=== PATIENT | female | born 1965 | race Caucasian/White ===

== ENCOUNTER 2021-01-02 08:56 | Day surgery (SDC) | payer MEDICARE ==
[2021-01-02] VITALS (9 sets, daily range): BP systolic 110–148; BP diastolic 65–88
[~2021-01-02] VITALS: Ht 165.1 cm; Wt 106.8 kg
[2021-01-02] MEDS ORDERED: MIDAZolam 1 MG/ML 5ML VIAL ONE (09:03)
[2021-01-02] MEDS ORDERED: fentaNYL/PF 50MCG/1 ML 2ML syringe ONE (09:03)
[2021-01-02] MEDS ORDERED: SERT100T PO (09:22)
[2021-01-02] MEDS ORDERED: BUS15T PO ×2 (09:23→09:24)
[2021-01-02] MEDS ORDERED: TRAM50TA2 PO (09:24)
[2021-01-02] MEDS ORDERED: SIMV-45 PO (09:25)
[2021-01-02] MEDS ORDERED: LOSA100T57 PO (09:27)
[2021-01-02] MEDS ORDERED: LEVO100T78 PO (09:34)
[2021-01-02] MEDS ORDERED: BUSP10TA3 PO (09:34)
[2021-01-02] MEDS ORDERED: METH20TA40 PO (09:34)
[2021-01-02] MEDS ORDERED: HYDR-3927 PO (09:34)
[2021-01-02] MEDS ORDERED: LAMO25TA5 PO (09:34)
[2021-01-02] MEDS ORDERED: TRIA1CAP6 PO (09:34)
[2021-01-02] MEDS ORDERED: DULO-31 PO (09:35)
== END 2021-01-02 11:37 | disposition home or self-care (01) ==
LOC: GI LAB 08:56
PROVIDERS: ATTEND Internal Medicine Gastroenterology
DX: Z12.11 Encounter for screening for malignant neoplasm of colon (principal); E66.9 Obesity, unspecified; Z68.39 Body mass index [BMI] 39.0-39.9, adult; Z88.1 Allergy status to other antibiotic agents; Z79.899 Other long term (current) drug therapy
CPT/HCPCS: G0121; G0500; J2250; J3010; J7040; Z7512; 45378; 99152; 99153; A4620

== ENCOUNTER 2021-04-03 09:23 | Day surgery (SDC) | payer MEDICARE ==
[2021-04-03] VITALS (9 sets, daily range): BP systolic 124–147; BP diastolic 71–83
[~2021-04-03] VITALS: Ht 165.1 cm; Wt 106.8 kg
[~2021-04-03 09:23] MED LIST: BUSP10TA3 PO; DULO-31 PO; HYDR-3927 PO; LAMO25TA5 PO; LEVO100T78 PO; LOSA100T57 PO; METH20TA40 PO; SERT100T PO; SIMV-45 PO; TRAM50TA2 PO; TRIA1CAP6 PO
[2021-04-03] MEDS ORDERED: ARIP15TA3 PO (09:59)
[2021-04-03] MEDS ORDERED: LAMO25TA72 PO (09:59)
[2021-04-03] MEDS ORDERED: LAMO200T31 PO (09:59)
[2021-04-03] MEDS ORDERED: CHOL400T57 PO (09:59)
[2021-04-03] MEDS ORDERED: TRAM50TA2 PO (09:59)
[2021-04-03] MEDS ORDERED: IBUP-1984 PO (09:59)
[2021-04-03] MEDS ORDERED: [UNRECOGNIZED DRUG - CODE] PO (09:59)
[2021-04-03] MEDS ORDERED: VITA0.4T18 PO (09:59)
[2021-04-03] MEDS ORDERED: MULT-467 PO (09:59)
[2021-04-03] MEDS ORDERED: CYCL-394 PO (09:59)
[2021-04-03] MEDS ORDERED: MIDAZolam 1 MG/ML 5ML VIAL ONE (10:02)
[2021-04-03] MEDS ORDERED: fentaNYL/PF 50MCG/1 ML 2ML syringe ONE (10:02)
== END 2021-04-03 12:05 | disposition home or self-care (01) ==
LOC: GI LAB 09:23
PROVIDERS: ATTEND Internal Medicine Gastroenterology
DX: Z12.11 Encounter for screening for malignant neoplasm of colon (principal); D12.3 Benign neoplasm of transverse colon; D12.5 Benign neoplasm of sigmoid colon; D12.2 Benign neoplasm of ascending colon; C18.7 Malignant neoplasm of sigmoid colon; I10 Essential (primary) hypertension; K57.30 Diverticulosis of large intestine without perforation or abscess without bleeding; K64.8 Other hemorrhoids; Z88.1 Allergy status to other antibiotic agents; Z79.899 Other long term (current) drug therapy
CPT/HCPCS: 45380; 45381; 45385; 99153; C1773; G0500; J2250; J3010; J7040; Z7512; 45335; 88305; 99152; A4620

== ENCOUNTER 2023-02-13 13:46 | Emergency (ER) | payer MEDICARE, OTHER ==
[~2023-02-13] VITALS: Ht 165.1 cm; Wt 129.0 kg
[~2023-02-13 13:46] MED LIST changes: +ARIP15TA3 PO; -BUSP10TA3 PO; +CHOL400T57 PO; +CYCL-394 PO; -DULO-31 PO; +IBUP-1984 PO; +LAMO100T PO; +LAMO200T10 PO; -LAMO25TA5 PO; -LOSA100T57 PO; +LOSA100T58 PO; +MULT-467 PO; -TRIA1CAP6 PO; +TRIA1CAP88 PO; +VITA0.4T18 PO
[2023-02-13] MEDS ORDERED: HYDROcodone/acetaminophen 10/325mg tab PO ONE ×2 (16:55→17:00)
[2023-02-13] MEDS ORDERED: HYDR-3973 PO (17:06)
--- NOTE | 2023-02-13 17:07 | NUR ---
Sling applied to right arm
[2023-02-13 17:36] VITALS: BP 134/78; PULSE 84; RESP 18; TEMP 98.1; O2SAT 98
== END 2023-02-13 17:39 | disposition home or self-care (01) ==
LOC: ER 13:46
DX: M25.511 Pain in right shoulder (principal); W19.XXXA Unspecified fall, initial encounter; Y93.89 Activity, other specified; Y92.89 Other specified places as the place of occurrence of the external cause; Y99.8 Other external cause status
CPT/HCPCS: 73030; 99283

== ENCOUNTER 2023-03-05 08:21 | Observation (INO) | payer OTHER ==
[2023-02-28 15:39] LABS: BASOPHILS # (AUTO) 0.1 X10'3 (0-0.2); BASOPHILS % (AUTO) 0.6 % (0-1); EOSINOPHILS # (AUTO) 0.4 X10'3 (0-0.9); EOSINOPHILS % (AUTO) 3.7 % (0-6); LYMPHOCYTES # (AUTO) 3.1 X10'3 (1.1-4.8); LYMPHOCYTES % (AUTO) 27.8 % (21-51); MEAN CORPUSCULAR HEMOGLOBIN 29.4 PG (27.0-31.0); MEAN CORPUSCULAR HGB CONC 33.3 g/dL (33.0-36.5); MEAN CORPUSCULAR VOLUME 88.4 FL (78-98); MEAN PLATELET VOLUME 6.4 FL (7.4-10.4); MONOCYTES # (AUTO) 0.8 X10'3 (0-0.9); NEUTROPHILS # (AUTO) 6.7 X10'3 (1.8-7.7); NEUTROPHILS % (AUTO) 60.9 % (42-75); PRE OP HEMATOCRIT 43.1 % (35.0-45.0); PRE OP HEMOGLOBIN 14.3 g/dL (12.0-16.0); PRE OP PLATELET COUNT 438 X10'3 (140-440); RED BLOOD COUNT 4.87 X10'6 (4.20-5.60); RED CELL DISTRIBUTION WIDTH 14.3 % (11.5-14.5)
[2023-02-28 15:43] LABS: BILIRUBIN,URINE NEGATIVE (Neg); CLARITY,URINE SLIGHTLY CLOUDY (Clear); COLOR,URINE YELLOW (Yellow); GLUCOSE, URINE NEGATIVE (Neg); KETONES,URINE NEGATIVE (Neg); LEUKOCYTE ESTERASE ,URINE NEGATIVE (Neg); NITRITES, URINE NEGATIVE (Neg); OCCULT BLOOD,URINE NEGATIVE (Neg); PROTEIN,URINE NEGATIVE (Neg); UROBILINOGEN,URINE 0.2 E.U/dL (0.2-1.0)
[2023-02-28 15:48] LABS: UA COLLECTION TYPE CLN CATCH MIDSTREAM
[2023-02-28 15:49] LABS: BACTERIA,URINE FEW /HPF (Neg); RBC,URINE 0-2 /HPF (0-2); SQUAMOUS EPITHELIAL CELL,UR FEW /LPF (FEW); STARCH,URINE MODERATE /HPF (NEGATIVE)
[2023-02-28 15:50] LABS: WBC,URINE 0-4 /HPF (0-4)
[2023-02-28 15:54] LABS: ALBUMIN 3.8 G/DL (3.4-5.0); ALKALINE PHOSPHATASE 154 IU/L (46-116); BLOOD UREA NITROGEN 13 MG/DL (7-18); BUN/CREATININE RATIO 13.3 (10.0-20.0); CHLORIDE 106 MMOL/L (99-107); CREATININE 0.98 MG/DL (0.40-0.90); PRE OP ALT 43 U/L (30-65); PRE OP ANION GAP 8 (8-16); PRE OP AST 29 U/L (10-37); PRE OP BILIRUB, TOTAL 0.2 MG/DL (0.0-1.0); PRE OP GLUCOSE 124 MG/DL (70-104); PRE OP POTASSIUM 3.7 MMOL/L (3.4-5.1); PRE OP SODIUM 142 MMOL/L (135-145); TOTAL CARBON DIOXIDE 27.7 MMOL/L (24-32); TOTAL PROTEIN 7.7 G/DL (6.4-8.2); eGFR 58 ML/MIN
[2023-02-28 15:55] LABS: PRE OP INR 0.9 INR
[~2023-03-05] VITALS: Ht 165.1 cm; Wt 113.4 kg
[2023-03-05] VITALS (18 sets, daily range): BP systolic 109–136; BP diastolic 63–80; PULSE 67–90; RESP 13–19; TEMP 97.3–99.2; O2SAT 91–99
[~2023-03-05 08:21] MED LIST changes: +BUSP10TA3 PO; -CHOL400T57 PO; -CYCL-394 PO; -HYDR-3927 PO; -IBUP-1984 PO; -LAMO200T10 PO; -VITA0.4T18 PO; +cefazolin 2gm/D5W 100mL 100 ML IV ONE; +famotidine 20mg tablet PO ONE; +ringers solution, lacted 1,000 ML IV SCH; +tranexamic acid inj. 1,000 MG in normal saline IV soln 100ML IV ONE
[2023-03-05] MEDS ORDERED: vancomycin 1,000mg inj ONE (10:54)
[2023-03-05] MEDS ORDERED: dexamethasone sod phosphate 10mg/ml inj ONE (12:23)
[2023-03-05] MEDS ORDERED: sevoflurane 250ml liquid IH ONE (12:23)
[2023-03-05] MEDS ORDERED: ondansetron/PF 4mg/2ml inj ONE (12:23)
[2023-03-05] MEDS ORDERED: fentaNYL/PF 50MCG/1 ML 2ML syringe ONE (12:29)
[2023-03-05] MEDS ORDERED: midazolam 1 mg/ML 2ml injection ONE (12:29)
[2023-03-05] MEDS ORDERED: propofol inj 20 ML IV ONE (12:32)
[2023-03-05] MEDS ORDERED: ROPIVAcaine 0.5% (5mg/ml) 30ml vial ONE (12:38)
[2023-03-05] MEDS ORDERED: proCHLORperazine 10 MG/2 ml inj IV PRN (14:15)
[2023-03-05] MEDS ORDERED: morphine 2 MG/ML inj. syringe IV PRN (14:15)
[2023-03-05] MEDS ORDERED: ringers solution, lacted 1,000 ML IV SCH (14:15)
[2023-03-05] MEDS ORDERED: morphine 4 MG/ML inj SYRINge IV PRN (14:15)
[2023-03-05] MEDS ORDERED: meperidine/PF 25mg/ml syringe IV PRN ×3 (14:15)
[2023-03-05] MEDS ORDERED: ondansetron/PF 4mg/2ml inj IV PRN ×2 (14:15→18:05)
--- NOTE | 2023-03-05 18:04 | NUR ---
Received from OR via hospital bed, accompanied by Anesthesiologist Marco and report given by Anesthesiolfélix and RACIEL Ornelas. Pt is responsive but sleepy. On 10L SM [id number]%. Right arm dressing with xerofoam, gauze, sling, and powdered cold pack-CDI. Right hand is warm, capillary refill <3 seconds, radial pulse palpable. Pt is sleepy, no s/sx of pain or discomfort.
[2023-03-05] MEDS ORDERED: potassium cl 20mEq in 1/2 NS 1,000 ML IV SCH (18:05)
[2023-03-05] MEDS ORDERED: diphenhydrAMINE 25mg capsule PO PRN (18:05)
[2023-03-05] MEDS ORDERED: HYDROcodone/acetaminophen 10/325mg tab PO PRN (18:05)
[2023-03-05] MEDS ORDERED: naloxone 0.4 mg/ml inj IV PRN (18:05)
[2023-03-05] MEDS ORDERED: magnesium hydroxide 30ml (MOM) UD suspension PO PRN (18:05)
[2023-03-05] MEDS ORDERED: bisacodyl 10mg suppository rectal RC PRN (18:05)
[2023-03-05] MEDS ORDERED: acetaminophen 325mg tablet PO PRN (18:05)
[2023-03-05] MEDS ORDERED: HYDROmorphone/PF 0.2 MG/ML SYRINGE IV PRN ×2 (18:15)
--- NOTE | 2023-03-05 19:08 | NUR ---
Report given to RACIEL Romeo. Pt transferred with all personal belongings including CPAP, all placed at the pt bedside. Bed locked, low, and call light in reach. No incident noted upon transfer.
[2023-03-05] MEDS: HYDROcodone/acetaminophen 10/325mg tab PO PRN (19:57)
[2023-03-05] MEDS: cefazolin 2gm/D5W 100mL 100 ML IV SCH (21:34)
[2023-03-06] MEDS: HYDROcodone/acetaminophen 10/325mg tab PO PRN ×3 (01:47→15:24)
[2023-03-06 02:00] VITALS: BP 128/86; PULSE 88; RESP 16; TEMP 98.7; O2SAT 94
[2023-03-06] MEDS: cefazolin 2gm/D5W 100mL 100 ML IV SCH (04:24)
[2023-03-06 06:00] VITALS: BP 112/72; PULSE 65; RESP 16; TEMP 98.4; O2SAT 98
--- NOTE | 2023-03-06 06:45 | NUR ---
Problems reprioritized. Patient report given, questions answered & plan of care reviewed with MARIKA SHIN.
--- NOTE | 2023-03-06 06:49 | NUR ---
Patient in room [facility] 4024. I have received report from Radha Garcia RN and had the opportunity to ask questions and assume patient care.
[2023-03-06 06:58] LABS: BASOPHILS % (AUTO) 0.3 % (0-1); EOSINOPHILS % (AUTO) 0 % (0-6); HEMATOCRIT 39.6 % (35.0-45.0); HEMOGLOBIN 12.8 g/dl (12.0-16.0); LYMPHOCYTES # (AUTO) 2.3 X10'3 (1.1-4.8); LYMPHOCYTES % (AUTO) 15.4 % (21-51); MEAN CORPUSCULAR HGB CONC 32.4 g/dL (33.0-36.5); MEAN CORPUSCULAR VOLUME 89.6 FL (78-98); MEAN PLATELET VOLUME 6.8 FL (7.4-10.4); MONOCYTES # (AUTO) 1.2 X10'3 (0-0.9); MONOCYTES % (AUTO) 8.4 % (2-12); NEUTROPHILS # (AUTO) 11.2 X10'3 (1.8-7.7); NEUTROPHILS % (AUTO) 75.9 % (42-75); PLATELET COUNT 471 X10'3 (140-440); RED BLOOD COUNT 4.42 X10'6 (4.20-5.60); RED CELL DISTRIBUTION WIDTH 14.8 % (11.5-14.5); WHITE BLOOD COUNT 14.8 X10'3 (4.5-11.0)
[2023-03-06 07:21] LABS: ANION GAP 8 (8-16); CHLORIDE 101 MMOL/L (99-107); POTASSIUM 3.7 MMOL/L (3.5-5.1); SODIUM 138 MMOL/L (135-145); TOTAL CARBON DIOXIDE 29.2 MMOL/L (24-32)
[2023-03-06 08:00] VITALS: RESP 16; O2SAT 98
[2023-03-06] MEDS ORDERED: aspirin 325mg tablet PO SCH (08:30)
[2023-03-06 10:00] VITALS: BP 135/64; PULSE 72; RESP 20; TEMP 98.4; O2SAT 94
[2023-03-06] MEDS ORDERED: ketorolac tromethamine 15mg/ml inj. IV STA (11:54)
--- NOTE | 2023-03-06 13:08 | NUR ---
I called pharmacy and spoke with Karina. She stated that the Grant just went through under worker comp approval. However, patient took tramadol prior to sx and isn't available for refill until after 03/18. So therefore, the new tramadol rx will NOT be filled. I advised Sarika
--- NOTE | 2023-03-06 15:30 | NUR ---
Patient discharged home with family and all discharge instructions were explained. All questions were answered and belongings were gathered. IV removed. Patient was alert and appropriate. Patient was wheeled downstairs and helped into private vehicle.
== END 2023-03-06 15:39 | disposition home or self-care (01) ==
LOC: PRE-OP 08:21 → INTOOBSV 18:10 → ORTHO 4S 18:10
PROVIDERS: ADMIT Specialist; ATTEND Specialist
DX: S42.231A 3-part fracture of surgical neck of right humerus, initial encounter for closed fracture (principal); S42.251A Displaced fracture of greater tuberosity of right humerus, initial encounter for closed fracture; M75.100 Unspecified rotator cuff tear or rupture of unspecified shoulder, not specified as traumatic; I10 Essential (primary) hypertension; E78.5 Hyperlipidemia, unspecified; M79.7 Fibromyalgia; G47.30 Sleep apnea, unspecified; F98.8 Other specified behavioral and emotional disorders with onset usually occurring in childhood and adolescence; M81.0 Age-related osteoporosis without current pathological fracture; K21.9 Gastro-esophageal reflux disease without esophagitis; E03.9 Hypothyroidism, unspecified; F41.8 Other specified anxiety disorders; M19.90 Unspecified osteoarthritis, unspecified site; Z79.899 Other long term (current) drug therapy; W18.30XA Fall on same level, unspecified, initial encounter; Y93.01 Activity, walking, marching and hiking; Y92.218 Other school as the place of occurrence of the external cause; Y99.0 Civilian activity done for income or pay
CPT/HCPCS: 23430; 23615; 36415; 71046; 73030; 73060; 76000; 80051; 80053; 81001; 82948; 85025; 85610; 85730; 86885; 86900; 86901; 87081; 93005; 96365; 96366; 96375; 97161; 97535; C1713; G0378; J0690; J1100; J1170; J1885; J2250; J2405; J2704; J2795; J3010; J3370; J3480; J3490; J7120; A4565; A4618; A4620; A6449; A6455; A7000

== ENCOUNTER 2023-12-24 11:00 | Observation (INO) | payer OTHER ==
[2023-12-18 10:56] LABS: BASOPHILS # (AUTO) 0.1 X10'3 (0-0.2); BASOPHILS % (AUTO) 0.6 % (0-1); LYMPHOCYTES # (AUTO) 2.9 X10'3 (1.1-4.8); LYMPHOCYTES % (AUTO) 33.5 % (21-51); MONOCYTES # (AUTO) 0.5 X10'3 (0-0.9)
[2023-12-18 10:58] LABS: EOSINOPHILS # (AUTO) 0.3 X10'3 (0-0.9); MEAN CORPUSCULAR VOLUME 90.9 FL (78-98); MEAN PLATELET VOLUME 6.9 FL (7.4-10.4); MONOCYTES % (AUTO) 5.8 % (2-12); NEUTROPHILS % (AUTO) 57.1 % (42-75); PRE OP HEMATOCRIT 45.3 % (35.0-45.0); PRE OP HEMOGLOBIN 14.9 g/dL (12.0-16.0); PRE OP PLATELET COUNT 391 X10'3 (140-440); PRE OP WHITE BLOOD COUNT 8.7 10'3 (4.8-10.8); RED BLOOD COUNT 4.98 X10'6 (4.20-5.60); RED CELL DISTRIBUTION WIDTH 14.1 % (11.5-14.5)
[2023-12-18 11:10] LABS: BILIRUBIN,URINE NEGATIVE (Neg); CLARITY,URINE SLIGHTLY CLOUDY (Clear); COLOR,URINE YELLOW (Yellow); GLUCOSE, URINE NEGATIVE (Neg); KETONES,URINE NEGATIVE (Neg); LEUKOCYTE ESTERASE ,URINE NEGATIVE (Neg); NITRITES, URINE NEGATIVE (Neg); OCCULT BLOOD,URINE NEGATIVE (Neg); PH,URINE 6.5 (4.8-8.0); PROTEIN,URINE NEGATIVE (Neg); UROBILINOGEN,URINE 0.2 E.U/dL (0.2-1.0)
[2023-12-18 11:20] LABS: SQUAMOUS EPITHELIAL CELL,UR MANY /LPF (FEW); UA COLLECTION TYPE CLN CATCH MIDSTREAM
[2023-12-18 11:21] LABS: ALBUMIN 3.8 G/DL (3.4-5.0); ALKALINE PHOSPHATASE 113 IU/L (46-116); BACTERIA,URINE 2+ /HPF (Neg); BLOOD UREA NITROGEN 9 MG/DL (7-18); BUN/CREATININE RATIO 8.2 (10.0-20.0); CALCIUM 8.3 MG/DL (8.5-10.1); CHLORIDE 102 MMOL/L (99-107); PRE OP ALT 50 U/L (30-65); PRE OP ANION GAP 9 (8-16); PRE OP AST 15 U/L (10-37); PRE OP BILIRUB, TOTAL 0.4 MG/DL (0.0-1.0); PRE OP GLUCOSE 189 MG/DL (70-104); PRE OP SODIUM 139 MMOL/L (135-145); THYROID STIMULATING HORMONE 1.04 ulU/ml (0.34-4.50); TOTAL CARBON DIOXIDE 27.6 MMOL/L (24-32); TOTAL PROTEIN 7.8 G/DL (6.4-8.2); WBC,URINE 0-4 /HPF (0-4); eGFR 51 ML/MIN
[2023-12-18 11:30] LABS: PRE OP POTASSIUM 2.9 MMOL/L (3.4-5.1)
[2023-12-24] VITALS (21 sets, daily range): BP systolic 101–157; BP diastolic 52–90; PULSE 61–81; RESP 13–17; TEMP 98.9–99.2; O2SAT 91–100
[~2023-12-24] VITALS: Ht 165.1 cm; Wt 111.8 kg
[~2023-12-24 11:00] MED LIST changes: +ACET-1995 PO; +BUTALBITAL; +CALCIUM; +CETI-194 PO; +ESTR0.5T6 PO; +FAMO20TA8 PO; +HYDR50TA65 PO; +MAG; +METF-436 PO; -MULT-467 PO; +SIME125C43 PO; +TOP100T PO; +ZINC; +[UNRECOGNIZED DRUG - OTHER]; -cefazolin 2gm/D5W 100mL 100 ML IV ONE; -famotidine 20mg tablet PO ONE; -ringers solution, lacted 1,000 ML IV SCH; -tranexamic acid inj. 1,000 MG in normal saline IV soln 100ML IV ONE
[2023-12-24] MEDS: ringers solution, lacted 1,000 ML IV SCH (11:59)
[2023-12-24] MEDS: famotidine 20mg tablet PO ONE (11:59)
[2023-12-24] MEDS: tranexamic acid inj. 1,000 MG in normal saline IV soln 100ML IV ONE (12:00)
[2023-12-24] MEDS: cefazolin 2gm/D5W 100mL 100 ML IV ONE (12:00)
[2023-12-24 12:17] LABS: ISTAT HGB 13.9 g/dl (12.0-16.0); ISTAT IONIZED CALCIUM 1.13 mmol/L (1.03-1.32); ISTAT K 4.1 mmol/L (3.5-5.1)
[2023-12-24] MEDS ORDERED: gelatin sponge, absorbable (Gelfoam 100) sponge TP ONE (12:20)
[2023-12-24] MEDS ORDERED: methylene blue (5mg/ml) 50mg/10ml ampul IV ONE (12:20)
[2023-12-24] MEDS ORDERED: Thrombin (Bovine) 5,000 unit vial TP ONE (12:21)
[2023-12-24] MEDS ORDERED: ondansetron/PF 4mg/2ml inj IV PRN (12:45)
[2023-12-24] MEDS ORDERED: bisacodyl 10mg suppository rectal RC PRN (12:45)
[2023-12-24] MEDS ORDERED: magnesium hydroxide 30ml (MOM) UD suspension PO PRN (12:45)
[2023-12-24] MEDS ORDERED: naloxone 0.4 mg/ml inj IV PRN (12:45)
[2023-12-24] MEDS ORDERED: diphenhydrAMINE 25mg capsule PO PRN (12:45)
[2023-12-24] MEDS ORDERED: acetaminophen 325mg tablet PO PRN ×2 (12:45→17:15)
[2023-12-24] MEDS ORDERED: fentaNYL/PF 50MCG/1 ML 2ML syringe ONE (12:49)
[2023-12-24] MEDS ORDERED: midazolam 1 mg/ML 2ml injection ONE (12:49)
[2023-12-24] MEDS ORDERED: rocuronium 10mg/ml inj IV ONE ×3 (12:50→15:00)
[2023-12-24] MEDS ORDERED: propofol inj 20 ML IV ONE (12:50)
[2023-12-24] MEDS ORDERED: tobramycin sulfate 1.2gm vial ONE (12:58)
[2023-12-24] MEDS ORDERED: sevoflurane 250ml liquid IH ONE (13:07)
[2023-12-24] MEDS ORDERED: LIDOcaine 2% (20mg/ml) 5ml vial ONE (15:00)
[2023-12-24] MEDS ORDERED: ROPIVAcaine 0.5% (5mg/ml) 30ml vial ONE (15:00)
[2023-12-24] MEDS ORDERED: LIDOcaine 1%/PF 5ML 10 MG/ML VIAL ONE (15:00)
[2023-12-24] MEDS ORDERED: ondansetron/PF 4mg/2ml inj ONE (15:00)
[2023-12-24] MEDS ORDERED: meperidine/PF 50mg/ml syringe ONE (16:13)
[2023-12-24] MEDS ORDERED: sugammadex 200mg/2ml injection IV ONE ×2 (16:13→16:36)
[2023-12-24] MEDS: vancomycin 1,000mg inj ONE (16:18)
[2023-12-24] MEDS ORDERED: HYDR-3927 PO (17:14)
[2023-12-24] MEDS ORDERED: traMADol 50MG tablet PO PRN (17:15)
[2023-12-24] MEDS ORDERED: SIMETHICONE 125 MG CAPSULE PO PRN (17:15)
[2023-12-24] MEDS: potassium cl 20mEq in 1/2 NS 1,000 ML IV SCH (19:49)
[2023-12-24] MEDS: methylphenidate 5mg tablet PO SCH (21:00)
[2023-12-24] MEDS: lamoTRIgine 100mg tablet PO SCH (21:39)
[2023-12-24] MEDS: aripiprazole 10MG tablet PO SCH (21:39)
[2023-12-24] MEDS: hydrOXYzine 25 MG tablet PO SCH (21:40)
[2023-12-24] MEDS: busPIRone 5mg tablet PO SCH (21:40)
[2023-12-24] MEDS: topiramate 25mg tablet PO SCH (21:41)
[2023-12-24] MEDS: simvastatin 20mg tablet PO SCH (21:41)
[2023-12-24] MEDS ORDERED: glucagon, human recombinant 1mg kit SUBCUT PRN (22:40)
[2023-12-24] MEDS ORDERED: dextrose 50%-water 50ml dispensing syringe IV PRN ×2 (22:40)
[2023-12-24] MEDS ORDERED: DEXTROSE 15 GM of carb/4 tabs (each vial/BOTTLE has 4 tablets) PO PRN ×2 (22:40)
[2023-12-25] MEDS ORDERED: vancomycin/NS 1 GM ADD-VANTAGE 250 ML IV SCH (01:00)
[2023-12-25 02:00] VITALS: BP 102/53; PULSE 57; RESP 18; TEMP 96.5; O2SAT 96
[2023-12-25] MEDS: cefazolin 2gm/D5W 100mL 100 ML IV SCH (02:04)
[2023-12-25] MEDS: HYDROcodone/acetaminophen 10/325mg tab PO PRN ×2 (05:18→12:17)
[2023-12-25 06:00] VITALS: BP 110/55; PULSE 62; RESP 18; TEMP 96.5; O2SAT 97
[2023-12-25] MEDS: INSULIN LISPRO 100 UNIT/ML INSULN.PEN MULTI-DOSE SQ SCH (07:00)
[2023-12-25 07:04] LABS: BASOPHILS % (AUTO) 0.3 % (0-1); EOSINOPHILS % (AUTO) 0.3 % (0-6); HEMATOCRIT 34.4 % (35.0-45.0); HEMOGLOBIN 11.2 g/dl (12.0-16.0); LYMPHOCYTES # (AUTO) 2.5 X10'3 (1.1-4.8); LYMPHOCYTES % (AUTO) 18.2 % (21-51); MEAN CORPUSCULAR HGB CONC 32.4 g/dL (33.0-36.5); MEAN CORPUSCULAR VOLUME 92.5 FL (78-98); MONOCYTES # (AUTO) 1.1 X10'3 (0-0.9); MONOCYTES % (AUTO) 8.1 % (2-12); NEUTROPHILS # (AUTO) 9.9 X10'3 (1.8-7.7); NEUTROPHILS % (AUTO) 73.1 % (42-75); PLATELET COUNT 321 X10'3 (140-440); RED BLOOD COUNT 3.72 X10'6 (4.20-5.60); RED CELL DISTRIBUTION WIDTH 14.4 % (11.5-14.5); WHITE BLOOD COUNT 13.6 X10'3 (4.5-11.0)
[2023-12-25] MEDS: metFORMIN 500mg tablet PO SCH (07:28)
[2023-12-25] MEDS: levoTHYROXINE 100mcg tablet PO SCH (07:28)
[2023-12-25] MEDS: cetirizine 10mg tablet PO SCH (07:29)
[2023-12-25] MEDS: famotidine 20mg tablet PO SCH (07:29)
[2023-12-25] MEDS: sertraline 50mg tablet PO SCH (07:30)
[2023-12-25] MEDS: triamterene/HCTZ 37.5/25mg tablet PO SCH (07:33)
[2023-12-25] MEDS: losartan 50mg tablet PO SCH (07:33)
[2023-12-25 07:43] LABS: ALANINE AMINOTRANSFERASE 40 U/L (12-78); ALKALINE PHOSPHATASE 73 IU/L (46-116); ANION GAP 5 (8-16); ASPARTATE AMINO TRANSFERASE 28 U/L (10-37); BILIRUBIN,TOTAL 0.3 MG/DL (0.1-1.0); BLOOD UREA NITROGEN 9 MG/DL (7-18); BUN/CREATININE RATIO 8.3 (10.0-20.0); CALCIUM 7.9 MG/DL (8.5-10.1); CHLORIDE 107 MMOL/L (99-107); CREATININE 1.09 MG/DL (0.40-0.90); GLUCOSE 129 MG/DL (70-104); POTASSIUM 4.4 MMOL/L (3.5-5.1); SODIUM 139 MMOL/L (135-145); TOTAL CARBON DIOXIDE 26.8 MMOL/L (24-32); eCRCL 50 ML/MIN; eGFR 51 ML/MIN
[2023-12-25] MEDS: DOXYCYCLINE 100MG CAPSULE PO SCH (08:30)
[2023-12-25 09:49] LABS: HEMOGLOBIN A1C 5.8 % (4.5-6.2)
[2023-12-25 10:00] VITALS: BP 114/55; PULSE 70; RESP 16; TEMP 98; O2SAT 97
== END 2023-12-25 13:47 | disposition home or self-care (01) ==
LOC: PRE-OP 11:00 → PAS IN 12:52 → PRE-OP 19:03 → UNDOADMOB 19:04 → ORTHO 4S 19:04
PROVIDERS: ADMIT Specialist; ATTEND Specialist
DX: M13.811 Other specified arthritis, right shoulder (principal); M75.101 Unspecified rotator cuff tear or rupture of right shoulder, not specified as traumatic; M25.511 Pain in right shoulder; S42.23 3-part fracture of surgical neck of humerus; G47.33 Obstructive sleep apnea (adult) (pediatric); I10 Essential (primary) hypertension; E78.5 Hyperlipidemia, unspecified; E03.9 Hypothyroidism, unspecified; F41.9 Anxiety disorder, unspecified; F32.A Depression, unspecified; K21.9 Gastro-esophageal reflux disease without esophagitis; M79.7 Fibromyalgia; Z85.038 Personal history of other malignant neoplasm of large intestine; Z86.2 Personal history of diseases of the blood and blood-forming organs and certain disorders involving the immune mechanism; X58.XXXS Exposure to other specified factors, sequela
CPT/HCPCS: 20680; 23472; 36415; 71046; 73030; 80047; 80053; 81001; 82948; 83036; 84443; 85025; 85610; 85730; 86885; 86900; 86901; 87070; 87075; 87081; 87176; 96365; 97110; 97161; 97530; C1776; G0378; J0690; J1100; J1815; J2175; J2250; J2405; J2704; J2795; J3010; J3260; J3370; J3480; J3490; J7120; Q0177; Q9968; 76000; A4615; A4618; A6449; A6455; A7000

== ENCOUNTER 2025-02-01 15:30 | Outpatient (CLI) | payer OTHER ==
[~2025-02-01 15:30] MED LIST changes: +HYDR-3927 PO; -HYDR50TA65 PO
--- NOTE | 2025-02-01 18:32 | RADIOLOGY REPORT ---
CLINICAL INDICATION: CONTUSION OF LEFT LOWER LEG, INITIAL ENCOUNTER TECHNIQUE: Multiplanar, multisequence MRI of the left knee was performed with contrast. Contrast: None. COMPARISON: None FINDINGS: Joint space and synovium: There is small knee joint effusion. No synovitis. There is a Zavala's cystr that measures 5.8 cm in craniocaudal dimension. Bones and articular cartilage: There is no evidence of acute fracture or bone marrow edema. The ali gnment is normal. High-grade multifocal articular cartilage loss is present in the patellofemoral c ompartment with osteophytes. There is high-grade multifocal articular cartilage loss on both sides of the medial compartment with mild subchondral bone marrow edema in the medial tibial plateau. There i s articular cartilage loss in the lateral femoral condyle. Small tricompartment osteophytes noted. Menisci: There is a complex tear of the posterior horn and body of the medial meniscus. The torn bod y is extruded into the medial gutter abutting the medial collateral ligament. There is a free edge te ar of the lateral meniscus. Tendons and ligaments: The tendons in the posterior knee are intact. The extensor mechanism is inta ct. The anterior cruciate ligament is thickened with T2 hyperintensity. The posterior cruciate li gament is intact. The medial collateral ligament and the lateral collateral ligament stabilizing c omplex are intact. Iliotibial band is intact. Muscles: Edema is present in the lateral gastrocnemius. Other: None. IMPRESSION: 1. Complex tear of the posterior horn and body of the medial meniscus. 2. Free edge tear of the lateral meniscus. 3. 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 4. Knee joint effusion and Zavala's cyst. 5. Edema in the lateral gastrocnemius reflect strain.
== END 2025-02-01 23:59 | disposition home or self-care (01) ==
LOC: MRI02 15:30
PROVIDERS: ATTEND Student in an Organized Health Care Education/Training Program
DX: S83.232A Complex tear of medial meniscus, current injury, left knee, initial encounter (principal); S80.12XA Contusion of left lower leg, initial encounter; M25.562 Pain in left knee; X58.XXXA Exposure to other specified factors, initial encounter; M71.22 Synovial cyst of popliteal space [Baker], left knee; Y93.89 Activity, other specified; Y92.89 Other specified places as the place of occurrence of the external cause; Y99.8 Other external cause status; M25.462 Effusion, left knee
CPT/HCPCS: 73721